=== PATIENT | male | born 1955 | race Caucasian/White ===

== ENCOUNTER 2020-01-10 12:20 | Emergency (ER) | payer BC, OTHER ==
[2020-01-10 12:52] LABS: BASOPHILS % (AUTO) 0.3 %; EOSINOPHILS % (AUTO) 0.3 %; HGB - HEMOGLOBIN 10.9 g/dL (14.0-18.0); LYMPHOCYTES # (AUTO) 0.4 10^3/uL (1.5-3.5); LYMPHOCYTES % (AUTO) 9.1 %; MEAN CORPUSCULAR HEMOGLOBIN 29.2 pg (27.0-31.0); MEAN CORPUSCULAR HGB CONC 32.4 g/dL (32.0-36.0); MEAN CORPUSCULAR VOLUME 90.1 fL (80.0-94.0); MEAN PLATELET VOLUME 9.6 fL (7.4-11.4); MONOCYTES # (AUTO) 0.6 10^3/uL (0.0-1.0); MONOCYTES % (AUTO) 14.9 %; NEUTROPHILS # (AUTO) 2.8 10^3/uL (1.5-6.6); NEUTROPHILS % (AUTO) 73.6 %; PLT - PLATELET COUNT 265 10^3/uL (130-450); RED BLOOD COUNT 3.73 10^6/uL (4.70-6.10); RED CELL DISTRIBUTION WIDTH 15.3 % (12.0-15.0); WHITE BLOOD COUNT 3.8 x10^3/uL (4.8-10.8)
[2020-01-10] MEDS ORDERED: SODIUM CHLORIDE 0.9% 500 ML IV ONE (12:54)
[2020-01-10 12:58] LABS: CALCIUM 8.5 mg/dL (8.5-10.3)
--- NOTE | 2020-01-10 13:00 | ED Physician Documentation ---
History of Present Illness - Stated complaint Stated Complaint: FEVER/COUGH - Chief complaint Chief Complaint: General - History obtained from History obtained from: Patient (64-year-old male comes in today with chief complaint of fever that occurred last night. Around midnight he awoke felt hot, his temperature was 103.0. states that she gave him some Tylenol and he woke this morning he is afebrile. Patient does have a past medical history of non-Hodgkin's lymphoma about 10 years ago. He was treated with Chemo 8 treatments, and then radiation, had a PICC line in his RUE He was recently not feeling well and went back to his oncologist Dr. Curry at [facility] on Tuesday, and had a lymph node removed on the left side of his neck for evaluation / testing. He found out yesterday that his non-Hodgkin's lymphoma has returned. Patient feels fatigued for several weeks now and he has had a cough since September, states the cough is in the back of his throat & not so much in his lungs. He has a follow-up appointment on Tuesday with his oncologist Dr. Curry regarding his returned lymphoma.), Family Review of Systems Constitutional: reports: Fever, Chills, Fatigue Eyes: reports: Reviewed and negative Ears: reports: Reviewed and negative Nose: reports: Congestion. denies: Rhinorrhea / runny nose, Sinus pressure / pain Throat: reports: Sore throat Cardiac: reports: Reviewed and negative. denies: Chest pain / pressure, Palpitations Respiratory: reports: Cough. denies: Hemoptysis, Wheezing GI: denies: Abdominal Pain, Nausea, Vomiting, Constipation, Diarrhea : denies: Dysuria, Frequency, Incontinent Skin: denies: Rash Neurologic: reports: Generalized weakness Immunocompromised: reports: Other (Non-Hodgkin's lymphoma) PD PAST MEDICAL HISTORY - Past Medical History Cardiovascular: None Respiratory: Shortness of breath Neuro: None GI: None : None Psych: None - Present Medications Home Medications: Ambulatory Orders Medication Instructions Recorded Confirmed Azithromycin [Zithromax] 0 mg PO DAILY #6 tablet 01/10/20 Doxycycline Hyclate 100 mg PO BID #20 capsule 01/10/20 - Allergies Allergies/Adverse Reactions: Allergies Allergy/AdvReac Type Severity Reaction Status Date / Time No Known Drug Allergies Allergy Verified 01/10/20 12:31 PD ED PE NORMAL - General General: Alert and oriented X 3, Well developed/nourished - HEENT HEENT: Atraumatic, PERRL, EOMI, Ears normal, Moist mucous membranes, Pharynx benign - Cardiac Cardiac: RRR, No murmur - Respiratory Respiratory: No respiratory distress, Clear bilaterally - Abdomen Abdomen: Normal bowel sounds, Soft, Non tender, Non distended, No organomegaly - Extremities Extremities: No deformity, No tenderness to palpate, No edema - Neuro Neuro: Alert and oriented X 3, No sensory deficit - Psych Psych: Normal mood, Normal affect PD ED PE EXPANDED - General General: Alert, No acute distress - Neck Neck: Adenopathy Results - Vitals Vitals: Vital Signs - 24 hr 01/10/20 01/10/20 01/10/20 12:25 12:45 13:09 Temperature 36.6 C 96.6 C H 37.3 C Heart Rate 81 80 80 Respiratory 17 16 16 Rate Blood Pressure 128/72 120/75 132/74 H O2 Saturation 99 99 99 01/10/20 14:11 Temperature Heart Rate 91 Respiratory 17 Rate Blood Pressure 134/67 H O2 Saturation 100 Oxygen O2 Source Room air - Labs Labs: Laboratory Tests 01/10/20 01/10/20 01/10/20 12:43 12:43 13:20 WBC 3.8 L RBC 3.73 L Hgb 10.9 L Hct 33.6 L MCV 90.1 MCH 29.2 MCHC 32.4 RDW 15.3 H Plt Count 265 MPV 9.6 Neut # (Auto) 2.8 Lymph # (Auto) 0.4 L [place] # (Auto) 0.6 Eos # (Auto) 0.0 Baso # (Auto) 0.0 Absolute Nucleated RBC 0.00 Nucleated RBC % 0.0 Sodium 131 L Potassium 3.5 Chloride 97 L Carbon Dioxide 24 Anion Gap 10.0 BUN 19 Creatinine 1.0 Estimated GFR (MDRD) 76 L Glucose 157 H Calcium 8.5 Influenza A (Rapid) Negative Influenza B (Rapid) Negative PD MEDICAL DECISION MAKING - ED course Complexity details: reviewed results, re-evaluated patient, d/w patient, d/w [facility] Departure - Departure Disposition: 01 Home, Self Care Clinical Impression: Viral URI with cough Condition: Good Instructions: ED URI Viral Prescriptions: Azithromycin [Zithromax] 0 mg PO DAILY #6 tablet Doxycycline Hyclate 100 mg PO BID #20 capsule Comments: As we discussed in the ER today, you do not have the flu virus. Your chest x- ray looked normal today show no signs of pneumonia. You most likely have a viral illness, which I will prescribe azithromycin antibiotic which she will take as directed. 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 Or you may apple picking supervisor any throat spray that has benzocaine as the active ingredient. Keep your appointment with your oncologist on Tuesday. And I wish you the best of luck with your non- Hodgkin's.
--- NOTE | 2020-01-10 13:33 | XRAY Report ---
Reason: cough Procedure Date: 01/10/2020 Accession Number: [id number] / [id number] Procedure: XR - Chest 2 View X-Ray CPT Code: 49154 Final Report FULL RESULT: EXAM: CHEST RADIOGRAPHY EXAM DATE: 01/10/2020 01:09 PM. CLINICAL HISTORY: Cough. COMPARISON: None. TECHNIQUE: 2 views. FINDINGS: Lungs/Pleura: No focal opacities evident. No pleural effusion. No pneumothorax. Large volumes. Mediastinum: Heart and mediastinal contours are unremarkable. Other: Minor age-related changes in the spine. IMPRESSION: Clear lungs. No acute findings. RADIA
[2020-01-10] MEDS ORDERED: IBUPROFEN 600 MG TABLET PO STA (14:44)
[2020-01-10 14:57] VITALS: BP 132/69
== END 2020-01-10 14:58 | disposition home or self-care (01) ==
LOC: ED 12:20
DX: J06.9 Acute upper respiratory infection, unspecified (principal); C85.91 Non-Hodgkin lymphoma, unspecified, lymph nodes of head, face, and neck
CPT/HCPCS: 36415; 71046; 80048; 81599; 85025; 87275; 87276; 99284; A9270

== ENCOUNTER 2020-08-11 12:39 | Emergency (ER) | payer BC ==
--- NOTE | 2020-08-11 14:07 | ED Physician Documentation ---
History of Present Illness - Stated complaint Stated Complaint: LT WRIST SWELLING - History obtained from History obtained from: Patient, Family () - Additonal information Additional information: see downtime charting PD PAST MEDICAL HISTORY - Past Medical History Cardiovascular: None Respiratory: Shortness of breath Neuro: None GI: None : None Psych: None - Present Medications Home Medications: Ambulatory Orders Medication Instructions Recorded Confirmed Azithromycin [Zithromax] 0 mg PO DAILY #6 tablet 01/10/20 - Allergies Allergies/Adverse Reactions: Allergies Allergy/AdvReac Type Severity Reaction Status Date / Time No Known Drug Allergies Allergy Verified 01/10/20 12:31 - Social History Does the pt smoke?: No Smoking Status: Never smoker Does the pt drink ETOH?: No Does the pt have substance abuse?: No Results - Vitals Vitals: Oxygen O2 Source Room air - Rads (name of study) L wrist 3v XR Radiology: EMP read contemporaneously (NATTY, GRAYSON) Procedures - Arthrocentesis Joint: Wrist, Left Preparation: Consent obtained, Sterile prep and drape Anesthesia: Lidocaine 1% Fluid: Bloody, Sent for culture, Sent for gram stain, Other (<1ml, QNS for cellcount/crystals. Clear to bloody.) Aftercare: Dressing applied PD MEDICAL DECISION MAKING - ED course ED course: BMP normal Uric Acid 5 CRP 12.6 ESR 55 WBC 0.73, ANC 0.21 Most C/W inflammatory arthrigtis. Gram Stain neg. Cul pending. Discussed need to return for fever.. Will Call if cx pos. Departure - Departure Disposition: 01 Home, Self Care Clinical Impression: Wrist joint inflamed Neutropenia Qualifiers: Neutropenia type: secondary to cancer chemotherapy Qualified Code(s): D70.1 - Agranulocytosis secondary to cancer chemotherapy; T45.1X5A - Adverse effect of antineoplastic and immunosuppressive drugs, initial encounter Condition: Stable
[2020-08-11] MEDS ORDERED: BUFFERED LIDOCAINE 10 ML SYRINGE ONE (14:46)
[2020-08-11] MEDS ORDERED: INDOMETHACIN 25 MG CAPSULE PO STA (14:48)
[2020-08-11 16:12] VITALS: BP 124/73
[2020-08-11 16:33] LABS: CALCIUM 9.6 mg/dL (8.5-10.3); CRP - C-REACTIVE PROTEIN 12.6 mg/dL (0-1.0)
[2020-08-11 17:13] LABS: BASOPHILS % (AUTO) 1.3 %; EOSINOPHILS % (AUTO) 1.3 %; LYMPHOCYTES % (AUTO) 59.7 %; MEAN CORPUSCULAR HEMOGLOBIN 32.3 pg (27.0-31.0); MEAN CORPUSCULAR HGB CONC 35.5 g/dL (32.0-36.0); MEAN CORPUSCULAR VOLUME 90.9 fL (80.0-94.0); MEAN PLATELET VOLUME 8.1 fL (7.4-11.4); MONOCYTES % (AUTO) 7.8 %; NEUTROPHILS % (AUTO) 24.7 %; RED BLOOD COUNT 3.72 10^6/uL (4.70-6.10); RED CELL DISTRIBUTION WIDTH 11.5 % (12.0-15.0)
[2020-08-11 17:14] LABS: WHITE BLOOD COUNT 0.8 x10^3/uL (4.8-10.8)
[2020-08-11 17:15] LABS: PLT - PLATELET COUNT 5 10^3/uL (130-450)
[2020-08-11 17:17] LABS: ABNORMAL LYMPHS % (MANUAL) 0 %; BAND NEUTROPHILS % (MANUAL) 0 %
[2020-08-11 17:19] LABS: DIFFERENTIAL COMMENT MANUAL DIFFERENTIAL; LYMPHOCYTES # (MANUAL) 0.5 10^3/uL (1.5-3.5); LYMPHOCYTES % (MANUAL) 64 %; PLATELET ESTIMATE, MANUAL DECREASED (<130,000) (NORMAL); PLATELET MORPHOLOGY NORMAL APPEARANCE (NORMAL); RBC MORPHOLOGY (MULTIPLE) NORMAL APPEARANCE (NORMAL)
--- NOTE | 2020-08-12 09:21 | XRAY Report ---
PROCEDURE: Wrist 3 View LT INDICATIONS: PAIN TECHNIQUE: 3 views of the wrist were acquired. COMPARISON: None. FINDINGS: Bones: No acute fractures or dislocations. No suspicious bony lesions. Mild degenerative changes a re seen at the first carpometacarpal joint. A probable degenerative cyst is seen in the distal ulna. Minimal degenerative changes are seen at the distal radioulnar joint. Soft tissues: No suspicious soft tissue calcifications. IMPRESSION: No acute osseous abnormality. Mild degenerative changes. If symptoms persist with conservative manage ment, further evaluation with CT or MRI may be obtained. Findings were discussed with Dr. Becerra of the Emergency Department by telephone [facility]/2020 [facility] 2[facility]30 PM. This dictation is being submitted the following day due to system downtime. Reviewed by: Jimmie Pop MD on 08/12/2020 9:19 AM PDT Approved by: Jimmie Pop MD on 08/12/2020 9:19 AM PDT Station ID: [id number]
== END 2020-08-11 16:11 | disposition home or self-care (01) ==
LOC: ED 12:39
DX: M19.032 Primary osteoarthritis, left wrist (principal); D70.1 Agranulocytosis secondary to cancer chemotherapy; T45.1X5A Adverse effect of antineoplastic and immunosuppressive drugs, initial encounter; C81.90 Hodgkin lymphoma, unspecified, unspecified site
CPT/HCPCS: 20605; 36415; 73110; 80048; 84550; 85025; 85651; 86140; 87070; 87205; 99283; 99284; A9270